=== PATIENT | female | born 1985 | race African-American/Black ===

== ENCOUNTER 2022-11-03 20:19 | Emergency (ER) | payer SELFPAY ==
[2022-11-03] MEDS ORDERED: Ketorolac Tromethamine 30 MG/ML VIAL ONE (21:54)
== END 2022-11-03 23:30 | disposition home or self-care (01) ==
LOC: ERS 20:19
DX: M54.9 Dorsalgia, unspecified (principal)
CPT/HCPCS: 96372; J1885